=== PATIENT | female | born 2005 | race Caucasian/White ===

== ENCOUNTER 2024-07-10 09:50 | Observation (INO) ==
--- NOTE | 2024-07-10 10:29 | Emergency Department Note ---
History of Present Illness General Chief complaint: Abdominal Pain Stated complaint: STOMACH CRAMPS, VOMITING Time Seen by Provider: 07/10/24 10:01 History of Present Illness Maximum Pain Intensity: 8 Patient is a 18-year-old female with past medical history significant for PCOS who presents emergency department for evaluation of right lower quadrant abdominal pain. Symptoms started last evening. She noted primarily right lower quadrant abdominal pain, it was constant and achy in nature. It steadily escalated overnight, and kept her from sleeping. She states the pain is now more sharp and shooting. She rates her discomfort an 8/10. She woke up today feeling nauseous and vomited about 4 times. No urinary symptoms. She had a normal bowel movement yesterday. Last menstrual period was 3 weeks ago. She does have a history of PCOS, this is well-managed on oral contraceptives. She did not try taking anything for her symptoms. No abnormal vaginal discharge. Home Medications Medication Instructions Recorded Confirmed Type norethindrone 1.5 mg-ethinyl 1 tab PO DAILY #84 tabs 11/18/23 02/16/24 Rx estradiol 30 mcg(21)/iron 75 mg(7) tablet (Loestrin Fe 1.5/30 (28-Day)) Allergies Allergy/AdvReac Type Severity Reaction Status Date / Time No Known Allergies Allergy Verified 02/16/24 10:19 Past Med/Surg History Problem List (Updated 07/10/24 @ 11:52 by Jodi Escalera) Acute appendicitis (Acute) Medical History Abnormal cortisol level History of PCOS History of gastritis Pituitary abnormality Herniated disc Migraines Asthma Surgical History Hx of wisdom tooth extraction Hx of tonsillectomy Family History Father Alcohol abuse Mother Depression Anxiety Grandmother (Maternal) Diabetes Hypertension Myocardial infarction Grandfather (Paternal) Hypertension Kidney stones Aunt Lung cancer Aunt Breast cancer Aunt Myocardial infarction Denies family history of Ovarian cancer Prostate cancer Colorectal cancer Stroke Social History Smoking Status: Never smoker Hx Alcohol Use: No Preferred Language: Malaysian Feels Safe at Home: Yes Review of Systems A total of 10 systems reviewed and were otherwise negative Physical Exam Vital Signs Vital Signs - 24 hr 07/10/24 09:56 07/10/24 10:35 07/10/24 11:02 Temperature 36.6 C Temperature Source Temporal Artery Scan Pulse Rate 100 H 79 73 Pulse Rate from SpO2 Sensor Respiratory Rate 18 13 Blood Pressure 120/71 105/58 L Blood Pressure Mean 87 78 Pulse Oximetry 99 100 Oxygen Delivery Method Room Air Sepsis New/Unexplained Change in Mental Status No Sepsis Action Taken by Nursing No Action Required 07/10/24 11:31 07/10/24 12:03 07/10/24 13:17 Temperature Temperature Source Pulse Rate Pulse Rate from SpO2 Sensor 83 79 Respiratory Rate Blood Pressure 96/74 L 103/77 105/56 L Blood Pressure Mean 83 85 75 Pulse Oximetry 99 99 Oxygen Delivery Method Sepsis New/Unexplained Change in Mental Status Sepsis Action Taken by Nursing 07/10/24 14:14 Temperature 36.8 C Temperature Source Oral Pulse Rate 81 Pulse Rate from SpO2 Sensor Respiratory Rate 16 Blood Pressure 116/71 Blood Pressure Mean Pulse Oximetry 96 Oxygen Delivery Method Room Air Sepsis New/Unexplained Change in Mental Status Sepsis Action Taken by Nursing CONSTITUTIONAL: Well-appearing 18-year-old female in no acute distress laying on the gurney. EYES: Pupils equal, round, reactive to light and accommodation. EOMs intact without nystagmus. Sclera are anicteric. ENT: Tympanic membranes intact, with normal landmarks. External canals are clear. Oral and nasopharynx are clear. Mucous membranes are moist, no lesions, tongue and gums appear normal. CARDIOVASCULAR: Regular rate and rhythm. Peripheral pulses easy to palpable. RESPIRATORY: Breath sounds equal and clear to auscultation. GI: Bowel sounds are diminished. The abdomen is soft, scaphoid, tender to percussion over the right lower quadrant and tender to palpation in the right lower quadrant localized guarding. MUSCULOSKELETAL: Full range of motion of extremities x 4 with good strength. No cyanosis, edema, joint tenderness or swelling. No deformity. INTEGUMENTARY: No lesions or rash, normal skin turgor. Course Course The patient was seen and assessed as above. External medical records are reviewed. She presents to the emergency department for evaluation of right lower quadrant abdominal pain, nausea and vomiting. IV lock was initiated. Laboratory studies were collected including CBC with differential, CMP, lipase, urinalysis and urine test. She was hydrated with normal saline solution and medicated with Zofran and morphine for pain. CT scan of the abdomen pelvis with IV contrast was ordered. Diagnostics, as interpreted by me: Laboratory studies: Mildly elevated white count at 13,100 with neutrophilic predominance. No anemia or thrombocytopenia. No electrolyte, HUMERA or transaminitis. Urine lipase is not elevated. Urine notes a contaminated sample with 11-20 epithelial cells, WBCs and leukocyte esterase noted with 2+ bacteria. Urine culture is pending. Urine test is negative. Imaging studies: CT scan of the abdomen and pelvis with IV contrast notes acute appendicitis without perforation or abscess. Patient was reassessed, and laboratory studies and CT scan findings were discussed with her. She had mild improvement in her pain with the IV morphine. She was updated that I am contacting general surgery. Patient discussed with Dr. Winter. He asked that the patient be given a dose of IV antibiotics. She was given Mefoxin 2 g IV. It will be at least a couple of hours until the OR is available. Maintenance fluid was ordered, normal saline solution at 250 cc/h. Patient was updated with regard to conversation with surgery and OR timing. She rested comfortably and remained stable in the emergency department, pending the OR. Nursing staff did contact me just before 1400, noting that the patient was asking for something additional for pain, she was ordered an additional morphine 4 mg IV. Shortly after this she was taken to the OR for surgical intervention. Differential diagnosis: Differential diagnoses considered included UTI, pyelonephritis, kidney stone, appendicitis, ovarian cyst, ovarian torsion, , ectopic , PID, tubo-ovarian abscess, among others. Administered Medications Fentanyl Citrate (Fentanyl Citrate Pf 100 Mcg/2 Ml Vial) 50 mcg IV Q5M PRN PRN Reason: PACU Use Only-Pain Stop: 07/10/24 22:33 Last Admin: 07/10/24 16:20 Dose: 50 mcg Documented By: Admin: 07/10/24 16:15 Dose: 50 mcg Documented By: BARI Sodium Chloride (Nss) 1,000 mls @ 250 mls/hr IV .Q4H OLAYINKA Stop: 08/09/24 12:29 Last Admin: 07/10/24 12:23 Dose: 250 mls/hr Documented By: TANISHA Discontinued Medications Bupivacaine HCl/Epinephrine Bitart (Bupivacaine/Epinephrine 0.5% Mpf 1:200,000 30 Ml Vial) Confirm Administered Dose 30 ml .ROUTE .STK-MED ONE Stop: 07/10/24 12:40 Last Admin: 07/10/24 15:58 Dose: 20 ml Documented By: ZAC Sodium Chloride (Nss) 1,000 mls @ 999 mls/hr IV .Q1H1M OLAYINKA Stop: 07/10/24 11:23 Last Infusion: 07/10/24 12:17 Dose: Infused Documented By: Admin: 07/10/24 10:53 Dose: 999 mls/hr Documented By: CEF Cefoxitin Sodium (Mefoxin) 2,000 mg in 60 mls @ 100 mls/hr IV NOW STA Stop: 07/10/24 12:40 Last Admin: 07/10/24 13:47 Dose: 100 mls/hr Documented By: CEF Ioversol (Optiray 320 100ml) 95 ml IV ONCE ONE Stop: 07/10/24 11:24 Last Admin: 07/10/24 11:24 Dose: 95 ml Documented By: GEOVANNIK Morphine Sulfate (Morphine Sulfate 4 Mg/Ml 1 Ml Carp\Vial) 4 mg IV NOW STA Stop: 07/10/24 10:24 Last Admin: 07/10/24 10:49 Dose: 4 mg Documented By: CEF Morphine Sulfate (Morphine Sulfate 4 Mg/Ml 1 Ml Carp\Vial) 4 mg IV NOW STA Stop: 07/10/24 13:58 Last Admin: 07/10/24 14:00 Dose: 4 mg Documented By: CEF Ondansetron HCl (Ondansetron Inj 2 Mg/Ml 2 Ml Vial) 4 mg IV NOW STA Stop: 07/10/24 10:24 Last Admin: 07/10/24 10:45 Dose: 4 mg Documented By: CEF Medical Decision Making Differential Diagnosis See ED Course. Medical Records Attestation: I reviewed the patient's medical records. Home Medications Current Medication List: was personally reviewed by me Laboratory Data Attestation: I reviewed the patient's lab results. 07/10/24 10:37 07/10/24 10:37 Lab Results 07/10/24 Range/Units 10:37 WBC 13.12 H (4.8-10.8) K/ul RBC 4.45 (4.20-5.40) M/uL Hgb 12.7 (12.0-16.0) g/dl Hct 39.0 (37.0-47.0) % MCV 87.6 (80.0-100.0) fL MCH 28.5 (25.0-34.0) pg MCHC 32.6 (32.0-36.0) g/dL RDW Std Deviation 40.9 (36.4-46.3) fL RDW Coeff of [place] 12.9 (11.5-14.5) % Plt Count 266 (130-400) K/uL MPV 9.9 (9.4-12.4) fL Immature Gran % (Auto) 0.3 % Neut % (Auto) 83.5 % Lymph % (Auto) 10.4 % Power % (Auto) 5.3 % Eos % (Auto) 0.3 % Baso % (Auto) 0.2 % Neut # (Auto) 10.97 H (1.40-6.50) K/uL Lymph # (Auto) 1.36 (1.20-3.40) K/uL Power # (Auto) 0.69 H (0.11-0.59) K/uL Eos # (Auto) 0.04 (0.00-0.50) K/uL Baso # (Auto) 0.02 (0.00-0.20) K/uL Immature Gran # (Auto) 0.04 (0.01-0.20) K/uL Sodium 136 (136-145) mmol/L Potassium 3.8 (3.5-5.1) mmol/L Chloride 106 (98-107) mmol/L Carbon Dioxide 23 (21-32) mmol/L Anion Gap 7 (3-11) BUN 9 (6-23) mg/dl Creatinine 0.87 (0.6-1.2) mg/dl Est Cr Clr Drug Dosing 81.6 ml/min Est GFR ( Amer) 111.1 ml/min Est GFR (Non-Af Amer) 95.9 ml/min BUN/Creatinine Ratio 10.3 (10-20) Glucose 85 (70-99(Fasting)) mg/dl Calcium 9.5 (8.6-10.3) mg/dl Total Bilirubin 0.4 (0.2-1.0) mg/dl AST 18 (13-39) U/L ALT 15 (7-52) U/L Alkaline Phosphatase 44 (34-104) U/L Total Protein 8.0 (6.0-8.3) gm/dl Albumin 4.5 (3.4-5.0) gm/dl Globulin 3.5 (2.5-4.0) gm/dl Albumin/Globulin Ratio 1.3 (0.9-2) Lipase 22 (11-82) U/L Urine Color Yellow Urine Appearance Cloudy A (Clear) Urine pH 7.0 (4.5-7.5) Ur Specific [place] 1.023 (1.000-1.030) Urine Protein Trace H (Negative) Urine Glucose (UA) Negative (Negative) Urine Ketones Negative (Negative) Urine Blood Negative (Negative) Urine Nitrite Negative (Negative) Urine Bilirubin Negative (Negative) Urine Urobilinogen Negative (Negative) Ur Leukocyte Esterase 2+ H (Negative) Urine WBC (Auto) 6-10 H (0-5) /hpf Urine RBC (Auto) 0-2 (0-2) /hpf U Hyaline Cast (Auto) 0-2 (0-2) /lpf U Epithel Cells (Auto) 11-20 H (0-2) /hpf Urine Bacteria (Auto) 2+ H (None Seen) Imaging Data Attestation: I personally reviewed and interpreted this imaging study as follows: Radiologist's Impression: Abdomen/Pelvis CT 07/10/24 10:23 CT OF THE ABDOMEN AND PELVIS WITH CONTRAST CLINICAL HISTORY: Right lower quadrant pain, nausea and vomiting. COMPARISON STUDY: None. TECHNIQUE: Following IV administration of 95 mL of Optiray, axial images of the abdomen and pelvis were obtained from the lung bases to the proximal femurs. Images were reviewed in the axial, sagittal, and coronal planes. IV contrast was administered without complication. Automated exposure control was utilized for the study. A dose lowering technique was utilized adhering to the principles of ALARA. CT DOSE: 368.97 mGy.cm FINDINGS: Lung bases are unremarkable. No pneumatosis, free air or abscess is present. Liver, spleen, adrenal glands, kidneys and pancreas are unremarkable. There is minimal periportal edema. There is no biliary or pancreatic ductal dilatation. There is no hydronephrosis there is no evidence for a bowel obstruction. The appendix is dilated, measuring 1 cm in caliber. There is moderate periappendiceal stranding and trace periappendiceal fluid. No free air or abscess is present. There is a small amount of fluid within the pelvis. No rim-enhancing fluid collections are present. Major vasculature is patent. IMPRESSION: 1. Acute appendicitis. No free air or abscess. Moderate periappendiceal inflammation. 2. Small amount of fluid within the pelvis. ACT 112: Negative or not required by law. Electronically signed by: Charles Jacob M.D. 07/10/2024 11:32 AM MDM Narrative See ED Course. Impression & Plan Acute appendicitis Discharge Plan Visit Data Chief Complaint: Abdominal Pain Stated Complaint: STOMACH CRAMPS, VOMITING ED Provider: Alfredo Payan ED Midlevel Provider: Jodi Escalera Discharge Problem: Acute appendicitis Patient Disposition: Being Evaluated by Surgeon Discharge Instructions Interventions: ED Discharge Assessment Last Done: 07/10/24 14:14 Discharge Problem: Acute appendicitis Qualifiers: Acute appendicitis type: with localized peritonitis Appendicitis gangrene presence: without gangrene Appendicitis perforation presence: without perforation Appendicitis abscess presence: without abscess Qualified Code(s): K 35.30 - Acute appendicitis with localized peritonitis, without perforation or gangrene
[2024-07-10] MEDS: ONDANSETRON INJ 2 MG/ML 2 ML VIAL IV STA (10:45)
[2024-07-10] MEDS: MoRPHine SULFATE 4 MG/ML 1 ML CARP\\VIAL IV STA ×2 (10:49→14:00)
[2024-07-10] MEDS: SODIUM CHLORIDE 0.9% 1,000 ML IV SCH ×2 (10:53→12:23)
[2024-07-10 11:02] LABS: Basophils # (auto) 0.02 K/uL (0.00-0.20); Basophils % (auto) 0.2 %; Eosinophils # (auto) 0.04 K/uL (0.00-0.50); Eosinophils % (auto) 0.3 %; Hemoglobin 12.7 g/dl (12.0-16.0); Immature Granulocytes # (auto) 0.04 K/uL (0.01-0.20); Immature Granulocytes % (auto) 0.3 %; Lymphocytes # (auto) 1.36 K/uL (1.20-3.40); Lymphocytes % (auto) 10.4 %; Mean Corpuscular Hemoglobin 28.5 pg (25.0-34.0); Mean Corpuscular Hgb Conc 32.6 g/dL (32.0-36.0); Mean Corpuscular Volume 87.6 fL (80.0-100.0); Mean Platelet Volume 9.9 fL (9.4-12.4); Monocytes # (auto) 0.69 K/uL (0.11-0.59); Monocytes % (auto) 5.3 %; Neutrophils # (auto) 10.97 K/uL (1.40-6.50); Neutrophils % (auto) 83.5 %; Platelet Count 266 K/uL (130-400); RDW Coefficient of Variation 12.9 % (11.5-14.5); RDW Standard Deviation 40.9 fL (36.4-46.3); Red Blood Count 4.45 M/uL (4.20-5.40); White Blood Count 13.12 K/ul (4.8-10.8)
[2024-07-10 11:11] LABS: Albumin Globulin Ratio 1.3 (0.9-2); Albumin Level 4.5 gm/dl (3.4-5.0); BUN Creatinine Ratio 10.3 (10-20); Bilirubin,Total 0.4 mg/dl (0.2-1.0); Calcium 9.5 mg/dl (8.6-10.3); Creatinine Clr Calc Pharmacy 81.6 ml/min; Est GFR (African American) 111.1 ml/min; Est GFR (Non-African American) 95.9 ml/min; Globulin 3.5 gm/dl (2.5-4.0); Potassium 3.8 mmol/L (3.5-5.1)
[2024-07-10 11:16] LABS: Appearance Urine Cloudy (Clear); Bacteria Urine Automated 2+ (None Seen); Bilirubin Urine Negative (Negative); Blood Urine Negative (Negative); Cast Urine Automated 0-2 /lpf (0-2); Color Urine Yellow; Glucose Urine UA Negative (Negative); Ketones Urine Negative (Negative); Leukocyte Esterase Urine 2+ (Negative); Nitrite Urine Negative (Negative); Protein Urine Trace (Negative); RBC Urine Automated 0-2 /hpf (0-2); Specific Gravity Urine 1.023 (1.000-1.030); Urobilinogen Urine Negative (Negative)
[2024-07-10] MEDS: OPTIRAY 320 100ml IV ONE (11:24)
--- NOTE | 2024-07-10 11:34 | CT Scan Report ---
CT OF THE ABDOMEN AND PELVIS WITH CONTRAST CLINICAL HISTORY: Right lower quadrant pain, nausea and vomiting. COMPARISON STUDY: None. TECHNIQUE: Following IV administration of 95 mL of Optiray, axial images of the abdomen and pelvis we re obtained from the lung bases to the proximal femurs. Images were reviewed in the axial, sagittal, and coronal planes. IV contrast was administered without complication. Automated exposure control wa s utilized for the study. A dose lowering technique was utilized adhering to the principles of ALARA . CT DOSE: 368.97 mGy.cm FINDINGS: Lung bases are unremarkable. No pneumatosis, free air or abscess is present. Liver, spleen, adrenal glands, kidneys and pancreas are unremarkable. There is minimal periportal edema. There is n o biliary or pancreatic ductal dilatation. There is no hydronephrosis there is no evidence for a magalie l obstruction. The appendix is dilated, measuring 1 cm in caliber. There is moderate periappendiceal stranding and trace periappendiceal fluid. No free air or abscess is present. There is a small amount of fluid within the pelvis. No rim-enhancing fluid collections are present. Major vasculature is pat ent. IMPRESSION: 1. Acute appendicitis. No free air or abscess. Moderate periappendiceal inflammation. 2. Small amount of fluid within the pelvis. ACT 112: Negative or not required by law. Electronically signed by: Charles Jacob M.D. 07/10/2024 11:32 AM
[2024-07-10] MEDS: cefOXitin 2,000 MG/60 ML BAG IV STA (13:47)
[2024-07-10] MEDS ORDERED: PROPOFOL IV EMULSION 10 MG/ML 20 ML VIAL IV ONE (14:24)
[2024-07-10] MEDS ORDERED: LIDOCAINE 2% 2 ML VIAL/AMP(20MG/ML) INFIL ONE (14:24)
[2024-07-10] MEDS ORDERED: ROCURONIUM BROMIDE 10 MG/ML 5 ML VIAL IV ONE (14:24)
[2024-07-10] MEDS ORDERED: MIDAZOLAM HCL 1 MG/ML 2ML VIAL ONE (14:25)
[2024-07-10] MEDS ORDERED: fentaNYL citrate PF 100 MCG/2 ML VIAL ONE (14:25)
[2024-07-10] MEDS ORDERED: ATROPINE SULFATE 0.1 MG/ML 10ML SYR IV PRN (14:33)
[2024-07-10] MEDS ORDERED: ePHEDrine sulfate 50 MG/ML AMP IV PRN (14:33)
[2024-07-10] MEDS ORDERED: ONDANSETRON INJ 2 MG/ML 2 ML VIAL IV PRN (14:33)
--- NOTE | 2024-07-10 14:33 | Anesthesiology Consultation ---
Date of Service July 10, 2024 Assessment & Plan Chart Review Chart Review: Acceptable Risk for Surgery and Patient NOT seen in Pre Admission Testing Consults Requested none ASA [id number] Proposed Anesthesia Anesthesia Type: General Risk / Benefits Reviewed With: PT / POA / Parent / Guardian, Accepts Plan and Informed Consent Obtained History Surgery Operation Date: 07/10/24 14:30 Proposed Procedures p Laparoscopic Appendectomy - Ben Winter MD Height/Weight Height: 5 ft 2 in Weight: 50.4 kg Allergies Allergy/AdvReac Type Severity Reaction Status Date / Time No Known Allergies Allergy Verified 02/16/24 10:19 Medications Home Medications Medication Instructions Recorded Confirmed Last Taken norethindrone 1.5 mg-ethinyl 1 tab PO DAILY #84 tabs 11/18/23 02/16/24 Unknown estradiol 30 mcg(21)/iron 75 mg(7) tablet (Loestrin Fe 1.5/30 (28-Day)) Active Medications Generic Name Dose Route Start Last Admin Trade Name Freq PRN Reason Stop Dose Admin Sodium Chloride 1,000 mls @ 250 mls/hr 07/10/24 12:30 07/10/24 12:23 Nss IV 08/09/24 12:29 250 mls/hr .Q4H OLAYINKA Administration Past Medical History Medical History Abnormal cortisol level History of PCOS History of gastritis Pituitary abnormality Herniated disc Migraines Asthma Exercise / Class Metabolic Activity II 4-5 Yardwork/Stairs/Walk up hill Past Family History Family History Father Alcohol abuse Mother Depression Anxiety Grandmother (Maternal) Diabetes Hypertension Myocardial infarction Grandfather (Paternal) Hypertension Kidney stones Aunt Lung cancer Aunt Breast cancer Aunt Myocardial infarction Denies family history of Ovarian cancer Prostate cancer Colorectal cancer Stroke Past Surgical History Surgical History Hx of wisdom tooth extraction Hx of tonsillectomy Past Anesthesia History No Hx of Anesthesia Complications and No Family Hx of Anesthesia Complications History of PONV No Hx of PONV and No Hx of Motion Sickness Social History Smoking Status: Never smoker Hx Alcohol Use: No Physical Exam Vital Signs Last Vital Signs Temp 36.8 C 07/10/24 14:14 Pulse 81 07/10/24 14:14 Resp 16 07/10/24 14:14 BP 116/71 07/10/24 14:14 Pulse Ox 96 07/10/24 14:14 O2 Del Method Room Air 07/10/24 14:14 ENMT Mouth: no dentition abnormality Thyromental Distance: > or= 3.5 Finger Breadths Mallampati Class: II Neck normal visual inspection Respiratory normal respiratory effort Auscultation: lungs clear to auscultation bilaterally Cardiovascular Rate/Rhythm: regular rate and regular rhythm Psychiatric Orientation: alert Testing Laboratory Results 07/10/24 10:37 07/10/24 10:37 Urine Color Yellow 07/10/24 10:37 Urine Appearance Cloudy (Clear) A 07/10/24 10:37 Urine pH 7.0 (4.5-7.5) 07/10/24 10:37 Ur Specific [place] 1.023 (1.000-1.030) 07/10/24 10:37 Urine Protein Trace (Negative) H 07/10/24 10:37 Urine Glucose (UA) Negative (Negative) 07/10/24 10:37 Urine Ketones Negative (Negative) 07/10/24 10:37 Urine Nitrite Negative (Negative) 07/10/24 10:37 Ur Leukocyte Esterase 2+ (Negative) H 07/10/24 10:37 Urine WBC (Auto) 6-10 /hpf (0-5) H 07/10/24 10:37 Urine RBC (Auto) 0-2 /hpf (0-2) 07/10/24 10:37 U Hyaline Cast (Auto) 0-2 /lpf (0-2) 07/10/24 10:37 U Epithel Cells (Auto) 11-20 /hpf (0-2) H 07/10/24 10:37 Urine Bacteria (Auto) 2+ (None Seen) H 07/10/24 10:37 07/10/24 Unknown POC Ur Test NEG
--- NOTE | 2024-07-10 14:50 | History & Physical Report ---
Date of Service July 10, 2024 Assessment & Plan (1) Acute appendicitis: Plan: IVF IV abx to OR for lap aapy Acute appendicitis type: with localized peritonitis Appendicitis abscess presence: without abscess Appendicitis gangrene presence: without gangrene Appendicitis perforation presence: without perforation Qualified Code(s): K35.30 - Acute appendicitis with localized peritonitis, without perforation or gangrene History of Present Illness Primary Care Provider: [facility] This is a 18-year-old female with right lower quadrant abdominal pain which began last evening. She noted primarily right lower quadrant abdominal pain, it was constant and achy in nature. It steadily escalated overnight, and kept her from sleeping. She states the pain is now more sharp and shooting. She has nausea and vomited about 4 times. No urinary symptoms. She had a normal bowel movement yesterday. Last menstrual period was 3 weeks ago. She does have a history of PCOS, this is well-managed on oral contraceptives. CT shows early appendicitis. Allergies Allergy/AdvReac Type Severity Reaction Status Date / Time No Known Allergies Allergy Verified 02/16/24 10:19 Home Medications Medication Instructions Recorded Confirmed Type norethindrone 1.5 mg-ethinyl 1 tab PO DAILY #84 tabs 11/18/23 02/16/24 Rx estradiol 30 mcg(21)/iron 75 mg(7) tablet (Loestrin Fe 1.5/30 (28-Day)) Past Med/Surg History Problem List (Updated 07/10/24 @ 11:52 by Jodi Escalera) Acute appendicitis (Acute) Medical History Abnormal cortisol level History of PCOS History of gastritis Pituitary abnormality Herniated disc Migraines Asthma Surgical History Hx of wisdom tooth extraction Hx of tonsillectomy Family History Father Alcohol abuse Mother Depression Anxiety Grandmother (Maternal) Diabetes Hypertension Myocardial infarction Grandfather (Paternal) Hypertension Kidney stones Aunt Lung cancer Aunt Breast cancer Aunt Myocardial infarction Denies family history of Ovarian cancer Prostate cancer Colorectal cancer Stroke Social History Smoking Status: Never smoker Hx Alcohol Use: No Preferred Language: Norwegian Feels Safe at Home: Yes Review of Systems + anorexia; no fever and no chills no problem reported no problem reported no cough and no dyspnea no chest pain + abdominal pain, + nausea and + vomiting; no change in bowel habits no dysuria no back pain no problem reported no localized weakness and no generalized weakness no behavioral changes Physical Exam Constitutional: WD/WN, vitals as above Eyes: PERRL, conjunctivae normal, anicteric sclerae ENMT: external ear and nose normal, oropharynx normal Neck: trachea midline, no thyromegaly Respiratory: normal respiratory effort, lungs clear to auscultation Cardiovascular: RRR, no murmur, no edema Gastrointestinal (Abdomen): Inspection/Auscultation: abdomen normal to inspection and normal bowel sounds; abdomen not distended Percussion/Palpation: + abdomen tender, + guarding and abdomen soft; abdomen not rigid Musculoskeletal: Head/Neck/Chest: normocephalic and head atraumatic Skin: no rashes, warm and dry Results & Data Vital Signs (Past 12 Hours) Vital Signs Temp Pulse Resp BP Pulse Ox O2 Del Method 07/10/24 14:14 36.8 C 81 16 116/71 96 Room Air 07/10/24 13:17 105/56 L 99 07/10/24 12:03 103/77 99 07/10/24 11:31 96/74 L 07/10/24 11:02 73 13 105/58 L 100 07/10/24 10:35 79 07/10/24 09:56 36.6 C 100 H 18 120/71 99 Room Air Diagnostic Findings CT OF THE ABDOMEN AND PELVIS WITH CONTRAST CLINICAL HISTORY: Right lower quadrant pain, nausea and vomiting. COMPARISON STUDY: None. TECHNIQUE: Following IV administration of 95 mL of Optiray, axial images of the abdomen and pelvis were obtained from the lung bases to the proximal femurs. Images were reviewed in the axial, sagittal, and coronal planes. IV contrast was administered without complication. Automated exposure control was utilized for the study. A dose lowering technique was utilized adhering to the principles of ALARA. CT DOSE: 368.97 mGy.cm FINDINGS: Lung bases are unremarkable. No pneumatosis, free air or abscess is present. Liver, spleen, adrenal glands, kidneys and pancreas are unremarkable. There is minimal periportal edema. There is no biliary or pancreatic ductal dilatation. There is no hydronephrosis there is no evidence for a bowel obstruction. The appendix is dilated, measuring 1 cm in caliber. There is moderate periappendiceal stranding and trace periappendiceal fluid. No free air or abscess is present. There is a small amount of fluid within the pelvis. No rim-enhancing fluid collections are present. Major vasculature is patent. IMPRESSION: 1. Acute appendicitis. No free air or abscess. Moderate periappendiceal inflammation. 2. Small amount of fluid within the pelvis.
[2024-07-10] MEDS ORDERED: HYDROmorphone INJ 1 MG/ML SYRINGE ONE (15:38)
[2024-07-10] MEDS ORDERED: ONDANSETRON INJ 2 MG/ML 2 ML VIAL ONE ×2 (15:42→15:51)
[2024-07-10] MEDS ORDERED: DEXAMETHASONE SOD INJ 4 MG/ML VIAL ONE ×2 (15:42→15:51)
[2024-07-10] MEDS ORDERED: KETOROLAC 30 MG/ML VIAL ONE (15:51)
[2024-07-10] MEDS ORDERED: SUGAMMADEX SODIUM 200 MG/2 ML VIAL IV ONE (15:51)
[2024-07-10] MEDS: BUPIVACAINE/EPINEPHRINE 0.5% MPF 1:200,000 30 ML VIAL ONE (15:58)
--- NOTE | 2024-07-10 16:12 | Operative Report ---
Post Operative Report Pre & Post Diagnosis Operation Date: 07/10/24 14:30 Acute appendicitis I identified the patient and participated in the time-out.: Yes Procedure Operation Date: 07/10/24 14:30 Laparoscopic appendectomy Surgeon Ben Winter MD Instrument Repair Specialist None Estimated Blood Loss 7 Findings Consistent with Post-Op Diagnosis Early acute appendicitis Specimens Appendix to pathology Drains None Anesthesia Type General Complications None Indications This is a 18-year-old female who is seen in the ED after workup for this abdominal pain. CT scan shows early appendicitis. We talked in detail about this. She was to proceed with laparoscopic appendectomy. The risks in detail. Description of Procedure The patient was taken to the OR and underwent excellent general anesthesia. Their abdomen was prepped and draped in normal sterile fashion. A transverse supraumbilical incision was made, towel clamps were used to create tension on the abdominal wall as a Varess needle was inserted gently into the peritoneal cavity. Good pneumoperitoneum was achieved to about 15 mmHg pressure. Once this was done, a visualized 11 port was placed in the supraumbilical position. A 12 mm left lower quadrant port , a 5mm suprapubic port , and a 5mm right upper quadrant port were placed in normal fashion. Patient was then placed in head down and rolled to the left. A good diagnostic lap was performed. They had obvious acute appendicitis. The cecum was grasped with an atraumatic grasper. A grasper was then was then used to grasp the tip of the appendix. The mesoappendix was splayed open and a harmonic scalpel was used to take down the mesoappendix. The base of the appendix was identified and an Endo ELLIS stapler was used to transect the appendix at its base. A Endobag was then inserted through the left lower quadrant port and the appendix was placed into the bag, The bag was removed through the left lower quadrant port. The appendix was then sent for pathologic evaluation. Pneumoperitoneum was re-established and the 12 mm port was replaced. Saline was then used to irrigate the abdomen. There was no active bleeding nor any other abnormalities noted in the abdomen. Patient was then placed back in neutral position, the ports were removed and the pneumoperitoneum decompressed. The 12mm port fascia was then closed using a 0 Vicryl. The skin was then anesthetized with 0.5% Marcaine with epinephrine local. Interrupted Vicryl is used to close the skin. Dermabond was used to reinforce the incisions. Sterile dressings were applied. The patient tolerated procedure without complications was sent to the postop recovery period of observation. They will be sent to the floor for the rest of their care. I attest to the content of the Intraoperative Record and any orders documented therein. Any exceptions are noted below.
[2024-07-10] MEDS: fentaNYL citrate PF 100 MCG/2 ML VIAL IV PRN (16:15)
--- NOTE | 2024-07-10 16:33 | Anesthesiology Progress Note ---
Date of Service July 10, 2024 Anesthesia Post Procedure Vital Signs Vital Signs: Temp Pulse Pulse Resp BP BP Pulse Ox 07/10/24 16:25 83 14 104/42 L 99 07/10/24 16:15 36 C L 99 H 16 115/61 100 07/10/24 14:14 36.8 C 81 16 116/71 96 07/10/24 13:17 105/56 L 99 07/10/24 12:03 103/77 99 07/10/24 11:31 96/74 L 07/10/24 11:02 73 13 105/58 L 100 07/10/24 10:35 79 07/10/24 09:56 36.6 C 100 H 18 120/71 99 O2 Del Method O2 Flow Rate 07/10/24 16:25 Room Air 07/10/24 16:15 Oxymask 6 07/10/24 14:14 Room Air 07/10/24 13:17 07/10/24 12:03 07/10/24 11:31 07/10/24 11:02 07/10/24 10:35 07/10/24 09:56 Room Air Pain Intensity Right Lower Abdomen: Pain Intensity: 4 Abdomen: Pain Intensity: 4 Transfer of Care Handoff Completed per policy Notes Mental Status: alert / awake / arousable Patient Amnestic to Procedure: Yes Nausea / Vomiting: adequately controlled Pain: adequately controlled Airway Patency, RR, SpO2: stable & adequate BP & HR: stable & adequate Hydration State: stable & adequate Anesthetic Complications: no major complications apparent
[2024-07-10] MEDS ORDERED: oxyCODONE/ACETAMINOPHEN 5mg/325mg TAB PO PRN (16:56)
[2024-07-10] MEDS ORDERED: MoRPHine SULFATE 4 MG/ML 1 ML CARP\\VIAL IV PRN (16:56)
[2024-07-10] MEDS ORDERED: MoRPHine SULFATE 2 MG/ML CARP IV PRN (16:56)
[2024-07-10] MEDS: oxyCODONE/ACETAMINOPHEN 5mg/325mg TAB PO PRN (17:07)
[2024-07-10] MEDS: LACTATED RINGER'S 1,000 ML IV SCH (17:21)
[2024-07-10] MEDS: ONDANSETRON INJ 2 MG/ML 2 ML VIAL IV PRN (17:51)
[2024-07-10] MEDS: cefOXitin 2,000 MG in DEXTROSE 5 % MINI-B 50 ML IV SCH (20:06)
[2024-07-10] MEDS: PROMETHAZINE HCL 6.25 MG in SODIUM CHLORIDE 0.9% 50 ML IV PRN (21:21)
[2024-07-10] MEDS: PROMETHAZINE 25 MG/51 ML BAG IV PRN (21:53)
--- NOTE | 2024-07-11 07:11 | Discharge Summary ---
Date of Service July 11, 2024 Admission HPI Per Admitting Provider This is a 18-year-old female with right lower quadrant abdominal pain which began last evening. She noted primarily right lower quadrant abdominal pain, it was constant and achy in nature. It steadily escalated overnight, and kept her from sleeping. She states the pain is now more sharp and shooting. She has nausea and vomited about 4 times. No urinary symptoms. She had a normal bowel movement yesterday. Last menstrual period was 3 weeks ago. She does have a history of PCOS, this is well-managed on oral contraceptives. CT shows early appendicitis. Principal Diagnosis appendicitis Discharge Data Allergies Allergy/AdvReac Type Severity Reaction Status Date / Time No Known Allergies Allergy Verified 02/16/24 10:19 Procedures Performed Operation Date: 07/10/24 14:30 Actual Procedures p Laparoscopic Appendectomy(Not Applicable) - Ben Keith MD Ordered Studies 07/10/24 10:23 CT abd pelvis IV con only Stat Hospital Course (1) Acute appendicitis: Patient admitted with early acute appendicitis. She was taken to OR for lap appy. She did well post-op and will be discharged POD#1. Total Time Total Time Spent Total Time Spent (In Minutes): 15 Discharge Plan Discharge Items Patient Disposition: Home - Self-Care Reason For Visit: APPENDICITIS Discharge Diagnosis: APPENDICITIS Activity: Per Instructions section Activity Comment: no strenuous exercise or work Lifting: No more than 25 pounds Bathing: No limitations Exercise/Sports: Wait until after follow-up appointment Driving/Machine Use: Resume 3 days after discharge Weightbearing: Full weightbearing Non-emergency contact: Surgeon Call non-emergency contact if: your pain is concerning for you, your temperature is above 101.5 and your wound pain has increased Follow-up/Referrals: Taylor Mccartney DO [Physician] - Diet: Regular Addtl Attending Provider Instructions: appt [facility] Pending Studies at Discharge: No Stand-Alone Forms: My [employer], Smoking Cessation Medications and DC Order Prescriptions: New oxycodone-acetaminophen [Percocet] 5-325 mg tablet 1 tab PO Q6H PRN (Reason: pain) Qty: 14 0RF Continued norethindrone-e.estradiol-iron [Loestrin Fe 1.5/30 (28-Day)] 1.5 mg-30 mcg (21)/75 mg (7) tablet 1 tab PO DAILY Qty: 84 2RF Discharge Orders: Discharge Order (Routine); Ordered 07/11/24 Ordered By: Ben Keith Admission Data Admit Date/Time: 07/10/24 16:15 Attending Provider: Ben Keith Admit Provider: Ben Keith Primary Care Provider: [facility]
[2024-07-11 07:19] VITALS: BP 96/62; RESP 16; TEMP 97.9; O2SAT 97
[2024-07-11] MEDS: ACETAMINOPHEN 325 MG TAB PO PRN (09:21)
[2024-07-11 09:30] VITALS: PULSE 68
== END 2024-07-11 10:40 | disposition home or self-care (01) ==
LOC: ED 09:50 → OR 14:14 → 3E 14:14